=== PATIENT | female | born 1980 | race American Indian/Alaskan Native ===

== ENCOUNTER 2019-12-18 19:07 | Emergency (ER) | payer OTHER ==
[2019-12-18 20:01] VITALS: BP 137/91
[2019-12-18] MEDS ORDERED: methylPREDNISolone Sod Succinate 125 MG/2 ML INJ IM ONE (20:18)
[2019-12-18] MEDS ORDERED: IPRATROPIUM 0.02% NEBU 2.5 ML IH ONE (20:18)
[2019-12-18] MEDS ORDERED: ALBUTEROL 2.5 MG/3 ML NEBU IH ONE (20:18)
--- NOTE | 2019-12-18 20:44 | Emergency Department Report ---
ED General Adult HPI - General Chief complaint: Dyspnea/Respdistress Stated complaint: ASTHMA/BRONCHITIS Time Seen by Provider: 12/18/19 20:18 Source: patient Mode of arrival: Ambulatory Limitations: No Limitations - History of Present Illness Initial comments: 36-year-old -Pakistani female patient presents with complaints of shortness of breath and coughing x yesterday. Patient states she has history of asthma and her albuterol inhaler is not working. She states this does feel like her asthma and denies any hemoptysis, leg pain/swelling, chest pain, recent long travel/surgeries, history of cancer, or hormone use. She also reports some congestion and runny nose, but denies any fevers/chills/sweats, abdominal pain, nausea/vomiting/diarrhea, or known recent sick contacts. No history of intubation per patient - Related Data Previous Rx's Medication Instructions Recorded Last Taken Type Albuterol Mdi (or & Nicu Only) 2 puff IH QID PRN #8.5 gram 12/18/19 Unknown Rx [ProAir HFA Inhaler] Levocetirizine Dihydrochloride 5 mg PO QHS PRN #15 tablet 12/18/19 Unknown Rx [Xyzal] Prednisone [predniSONE 10 mg 10 mg PO .TAPER #1 tab.ds.pk 12/18/19 Unknown Rx (6-Day Pack, 21 Tabs)] ED Review of Systems ROS: Stated complaint: ASTHMA/BRONCHITIS Other details as noted in HPI Constitutional: denies: chills, diaphoresis, fever, malaise, weakness ENT: denies: throat pain Respiratory: cough Cardiovascular: denies: chest pain, edema, syncope Endocrine: denies: excessive sweating Gastrointestinal: denies: abdominal pain, nausea, vomiting Musculoskeletal: denies: back pain Skin: denies: rash Neurological: denies: headache ED Past Medical Hx - Past Medical History Previous Medical History?: Yes Hx Asthma: Yes Additional medical history: Bronchitis - Surgical History Past Surgical History?: Yes Hx Cholecystectomy: Yes Additional Surgical History: C-Sec X 1 - Social History Smoking Status: Former Smoker Substance Use Type: Alcohol, Marijuana - Medications Home Medications: Home Medications Medication Instructions Recorded Confirmed Last Taken Type Albuterol Mdi (or & Nicu Only) 2 puff IH QID PRN #8.5 gram 12/18/19 Unknown Rx [ProAir HFA Inhaler] Levocetirizine Dihydrochloride 5 mg PO QHS PRN #15 tablet 12/18/19 Unknown Rx [Xyzal] Prednisone [predniSONE 10 mg 10 mg PO .TAPER #1 tab.ds.pk 12/18/19 Unknown Rx (6-Day Pack, 21 Tabs)] ED Physical Exam - General Limitations: No Limitations General appearance: alert, in no apparent distress - Head Head exam: Present: atraumatic, normocephalic - Eye Eye exam: Present: normal appearance - Neck Neck exam: Present: normal inspection - Respiratory Respiratory exam: Present: wheezes. Absent: respiratory distress, rales, rhonchi, stridor, chest wall tenderness, accessory muscle use - Cardiovascular Cardiovascular Exam: Present: regular rate, normal rhythm - GI/Abdominal GI/Abdominal exam: Present: soft. Absent: tenderness - Extremities Exam Extremities exam: Present: full ROM. Absent: calf tenderness (No swelling or tenderness to palpation noted to legs bilaterally) - Back Exam Back exam: Present: full ROM - Neurological Exam Neurological exam: Present: alert, oriented X3 - Psychiatric Psychiatric exam: Present: normal affect, normal mood - Skin Skin exam: Present: warm, dry, intact, normal color. Absent: rash, cyanosis ED Course Vital Signs 12/18/19 12/18/19 12/19/19 19:56 20:59 01:00 Temperature 99.4 F 98.5 F Pulse Rate 107 H 112 H Pulse Rate [ 98 H Bilateral] Respiratory 18 18 Rate Respiratory 22 Rate [Bilateral ] Blood Pressure 137/91 O2 Sat by Pulse 94 99 Oximetry ED Medical Decision Making - Radiology Data Radiology results: report reviewed CHEST 2 VIEWS INDICATION / CLINICAL INFORMATION: shortness of breath. COMPARISON: None available. FINDINGS: SUPPORT DEVICES: None. HEART / MEDIASTINUM: No significant abnormality. LUNGS / PLEURA: No significant pulmonary or pleural abnormality. No pneumothorax. ADDITIONAL FINDINGS: No significant additional findings. IMPRESSION: 1. No acute findings. - Medical Decision Making 36-year-old -Pakistani female patient presents with complaints of shortness of breath and coughing x yesterday. Patient states she has history of asthma and her albuterol inhaler is not working. She states this does feel like her asthma and denies any hemoptysis, leg pain/swelling, chest pain, recent long travel/surgeries, history of cancer, or hormone use. She also reports some congestion and runny nose, but denies any fevers/chills/sweats, abdominal pain, nausea/vomiting/diarrhea, or known recent sick contacts. No history of intubation per patient Patient given Solu-Medrol IM and continuous neb treatment with DuoNeb. Patient states her symptoms have significantly improved. Chest x-ray is normal. She is afebrile. Heart rate improved to 99 on recheck. She is well-appearing and stable for discharge home. Strict return precautions were discussed in detail with patient who verbalized understanding. Recommend follow-up with her PCP within 3 to 5 days. Critical care attestation.: If time is entered above; I have spent that time in minutes in the direct care of this critically ill patient, excluding procedure time. ED Disposition Clinical Impression: Asthma exacerbation Qualifiers: Asthma severity: mild Asthma persistence: intermittent Qualified Code(s): J45.21 - Mild intermittent asthma with (acute) exacerbation Disposition: TO HOME OR SELFCARE Is pt being admited?: No Condition: Stable Instructions: Asthma (ED) Prescriptions: Levocetirizine Dihydrochloride [Xyzal] 5 mg PO QHS PRN #15 tablet PRN Reason: seasonal allergies/congestion Prednisone [predniSONE 10 mg (6-Day Pack, 21 Tabs)] 10 mg PO .TAPER #1 tab.ds.pk Albuterol Mdi (or & Nicu Only) [ProAir HFA Inhaler] 2 puff IH QID PRN #8.5 gram PRN Reason: Shortness Of Breath Referrals: PRIMARY CARE, [Referring] - 3-5 Days
--- NOTE | 2019-12-18 21:12 | XRay Report ---
CHEST 2 VIEWS INDICATION / CLINICAL INFORMATION: shortness of breath. COMPARISON: None available. FINDINGS: SUPPORT DEVICES: None. HEART / MEDIASTINUM: No significant abnormality. LUNGS / PLEURA: No significant pulmonary or pleural abnormality. No pneumothorax. ADDITIONAL FINDINGS: No significant additional findings. IMPRESSION: 1. No acute findings. Signer Name: Silas Garcia MD Signed: 12/18/2019 9:07 PM Workstation Name: [id number]
== END 2019-12-19 01:00 | disposition home or self-care (01) ==
LOC: ED 19:07
DX: J45.901 Unspecified asthma with (acute) exacerbation (principal); F12.90 Cannabis use, unspecified, uncomplicated; Z79.899 Other long term (current) drug therapy; Z98.890 Other specified postprocedural states; Z90.49 Acquired absence of other specified parts of digestive tract; Z87.891 Personal history of nicotine dependence
CPT/HCPCS: 71046; 94640; 96372; 99283; J2930; 94644

== ENCOUNTER 2019-12-25 00:07 | Emergency (ER) | payer OTHER ==
[2019-12-25 00:16] VITALS: BP 138/89
[2019-12-25] MEDS ORDERED: predniSONE 50 MG TAB PO ONE (00:20)
[2019-12-25] MEDS ORDERED: IPRATROPIUM/ALBUTEROL SULFATE 3 ML AMPUL.NEB IH ONE (00:20)
--- NOTE | 2019-12-25 01:02 | XRay Report ---
CHEST 1 VIEW INDICATION / CLINICAL INFORMATION: Upeer Respiratory Infection. COMPARISON: 12/18/19 FINDINGS: SUPPORT DEVICES: None. HEART / MEDIASTINUM: No significant abnormality. LUNGS / PLEURA: No significant pulmonary or pleural abnormality.. No pneumothorax. ADDITIONAL FINDINGS: No significant additional findings. IMPRESSION: 1. No acute findings. Signer Name: Gatito Bolivar MD Signed: 12/25/2019 12:58 AM Workstation Name: [id number]
[2019-12-25] MEDS ORDERED: predniSONE 20 MG TAB ONE (05:14)
--- NOTE | 2019-12-25 07:44 | Emergency Department Report ---
Minor Respiratory - HPI Chief Complaint: Upper Respiratory Infection Stated Complaint: FARRUKH/COUGHING/ Time Seen by Provider: 12/25/19 07:28 Duration: 1week Minor Respiratory: Yes Sore Throat, Yes Able to Tolerate Fluids, Yes Cough, Yes Shortness of Breath, No Rhinorrhea, No Ear Pain, No Sick Contacts, No Hemoptysis, No Chest Pain, No Fever Other History: The patient was evaluated in the emergency department for symptoms described in the history of present illness. He/she was evaluated in the context of the global COVID-19 pandemic, which necessitated consideration that the patient might be at risk for infection with the virus that causes COVID-19. Institutional protocols and algorithms that pertain to the evaluation of patients at risk for COVID-19 are in a state of rapid change based on information released by regulatory bodies including the CDC and federal and state organizations. These policies and algorithms were followed during the patient's care in the emergency department. Please note that these policies, procedures and recommendations changed on a rapid basis. 39-year-old - [place] female presents to the emergency room stating she is having some shortness of breath since last week with a history of asthma. Patient states that she was seen on the and was given Xyzal, ProAir air and a prednisone pack. Patient states that she still is having a cough and laryngitis. Patient stated earlier she was wheezing. He thinks denies any recent travels no cancers. She reports she has a history of asthma and bronchitis. Patient denies any fever chills no nausea no vomiting no chest pain no difficulty swallowing no ear pain. She does admit to nasal congestion. ED Review of Systems ROS: Stated complaint: FARRUKH/COUGHING/ Other details as noted in HPI ED Past Medical Hx - Past Medical History Hx Asthma: Yes Additional medical history: Bronchitis - Surgical History Hx Cholecystectomy: Yes Additional Surgical History: C-Sec X 1 - Social History Smoking Status: Former Smoker Substance Use Type: None - Medications Home Medications: Home Medications Medication Instructions Recorded Confirmed Last Taken Type Albuterol Mdi (or & Nicu Only) 2 puff IH QID PRN #8.5 gram 12/18/19 Unknown Rx [ProAir HFA Inhaler] Levocetirizine Dihydrochloride 5 mg PO QHS PRN #15 tablet 12/18/19 Unknown Rx [Xyzal] Prednisone [predniSONE 10 mg 10 mg PO .TAPER #1 tab.ds.pk 12/18/19 Unknown Rx (6-Day Pack, 21 Tabs)] Benzonatate [Tessalon Perles] 100 mg PO Q8HR PRN #21 capsule 12/25/19 Unknown Rx predniSONE [Deltasone] 40 mg PO QDAY 5 Days #10 tab 12/25/19 Unknown Rx Minor Respiratory Exam - Exam General: Vital signs noted. No distress. Alert and acting appropriately. HEENT: Yes Moist Mucous Membranes, No Pharyngeal Erythema, No Pharyngeal Exudates, No Rhinorrhea, No Conjuctival Injection, No Frontal Tenderness, No Maxillary Tenderness Neck: Yes Supple, No Adenopathy Lungs: Yes Good Air Exchange, No Wheezes, No Ronchi, No Stridor, No Cough, No Labored Respirations, No Retractions, No Use of Accessory Muscles, No Other Abnormal Lung Sounds Heart: Yes Regular, No Murmur Abdomen: Yes Normal Bowel Sounds, No Tenderness, No Peritoneal Signs Skin: No Rash, No Edema Neurologic: Alert and oriented, no deficits. Musculoskeletal: Unremarkable. ED Course Vital Signs 12/25/19 00:13 Temperature 98.8 F Pulse Rate 105 H Respiratory 20 Rate Blood Pressure 138/89 O2 Sat by Pulse 97 Oximetry ED Medical Decision Making - Radiology Data Radiology results: report reviewed Patient: ULICES SANTIAGO MR#: [id number] : 1980 Acct:[id number] Age/Sex: 39 / F ADM Date: 12/25/19 Loc: ED Attending Dr: Ordering Physician: ED MD ROSSANA Date of Service: 12/25/19 Procedure(s): XR chest 1V ap Accession Number(s): [id number] cc: ED MD ROSSANA Fluoro Time In Minutes: CHEST 1 VIEW INDICATION / CLINICAL INFORMATION: Upeer Respiratory Infection. COMPARISON: 12/18/19 FINDINGS: SUPPORT DEVICES: None. HEART / MEDIASTINUM: No significant abnormality. LUNGS / PLEURA: No significant pulmonary or pleural abnormality.. No pneumothorax. ADDITIONAL FINDINGS: No significant additional findings. IMPRESSION: 1. No acute findings. Signer Name: Gatito Bolivar MD Signed: 12/25/2019 12:58 AM Workstation Name: [id number] Transcribed By: SS Dictated By: Gatito Bolivar MD Electronically Authenticated By: Gatito Bolivar MD Signed Date/Time: 12/25/1957 DD/ TD/TT: - Medical Decision Making 39-year-old -Welsh female presents to the emergency room stating she is having some shortness of breath since last week with a history of asthma. Patient states that she was seen on the and was given Xyzal, ProAir air and a prednisone pack. Patient states that she still is having a cough and laryn gitis. Patient stated earlier she was wheezing. He thinks denies any recent travels no cancers. She reports she has a history of asthma and bronchitis. Patient denies any fever chills no nausea no vomiting no chest pain no difficulty swallowing no ear pain. She does admit to nasal congestion. Chest x-ray is negative for any acute findings. I discussed with patient I will place her on prednisone and [place] 8 she is to continue with her Xyzal and her albuterol treatments. Discussed the patient I will refer her to her primary care provider. Critical care attestation.: If time is entered above; I have spent that time in minutes in the direct care of this critically ill patient, excluding procedure time. ED Disposition Clinical Impression: Cough, Asthma exacerbation Disposition: -01 TO HOME OR SELFCARE Is pt being admited?: No Does the pt Need Aspirin: No Condition: Stable Instructions: Asthma (ED) Additional Instructions: Take cough Perles as needed. Use your inhaler as needed. Complete the prednisone. And follow-up with the graphic engineer and primary care provider. I have listed the information below for your convenience. Prescriptions: predniSONE [Deltasone] 40 mg PO QDAY 5 Days #10 tab Benzonatate [Tessalon Perles] 100 mg PO Q8HR PRN #21 capsule PRN Reason: Cough Referrals: PRIMARY CARE, [Primary Care Provider] - 3-5 Days ADE VALLADARES MD [Staff Physician] - 3-5 Days FELIPA ROGERS MD [Staff Physician] - 3-5 Days Forms: Work/School Release Form(ED)
== END 2019-12-25 08:11 | disposition home or self-care (01) ==
LOC: ED 00:07
DX: J45.901 Unspecified asthma with (acute) exacerbation (principal); R05 Cough; Z98.890 Other specified postprocedural states; Z87.891 Personal history of nicotine dependence; Z90.49 Acquired absence of other specified parts of digestive tract; Z79.899 Other long term (current) drug therapy
CPT/HCPCS: 71045; 94640; 99283; J7512

== ENCOUNTER 2020-06-09 13:06 | Emergency (ER) | payer OTHER ==
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
[2020-06-09 13:50] VITALS: BP 177/99
[2020-06-09] MEDS ORDERED: TETANUS,DIPH,PERTUSS(ACELL) VACCINE 0.5 ML SYRINGE IM ONE ×2 (13:51→16:45)
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
== END 2020-06-09 16:00 | disposition home or self-care (01) ==
LOC: ED 13:06
DX: S63.602A Unspecified sprain of left thumb, initial encounter (principal); S83.92XA Sprain of unspecified site of left knee, initial encounter; R03.0 Elevated blood-pressure reading, without diagnosis of hypertension; J45.909 Unspecified asthma, uncomplicated; Z87.891 Personal history of nicotine dependence; Z79.899 Other long term (current) drug therapy; Y08.89XA Assault by other specified means, initial encounter; Y93.89 Activity, other specified; Y92.89 Other specified places as the place of occurrence of the external cause; Y99.8 Other external cause status
CPT/HCPCS: 90471; 90715; 99283